=== PATIENT | female | born 1980 | race African-American/Black ===

== ENCOUNTER 2025-02-03 14:19 | Emergency (ER) | payer MEDICAID ==
[~2025-02-03] VITALS: Ht 157.5 cm; Wt 84.0 kg
[2025-02-03 14:26] VITALS: O2SAT 99
[2025-02-03 15:06] VITALS: TEMP 37.1
[2025-02-03 16:23] LABS: CREATININE 0.7 mg/dL (0.6-1.0); UREA NITROGEN BLOOD 6 mg/dL (9-23)
[2025-02-03 16:32] LABS: HCG SCREEN NEGATIVE
[2025-02-03] MEDS: CLONIDINE 0.1MG TABLET PO ONE (17:03)
[2025-02-03] MEDS: POTASSIUM CHLORIDE 20MEQ TABLET SR PO ONE (17:03)
[2025-02-03 18:36] VITALS: BP 168/84; PULSE 72; RESP 18; O2SAT 99
== END 2025-02-03 18:51 | disposition home or self-care (01) ==
LOC: ER 14:19
DX: I10 Essential (primary) hypertension (principal); E87.6 Hypokalemia
CPT/HCPCS: 36415; 80048; 84703; 99285